=== PATIENT | female | born 1990 | race Two or more races ===

== ENCOUNTER 2016-03-13 14:57 | Emergency (ER) | payer MEDICAID, OTHER ==
[~2016-03-13] VITALS: Wt 70.0 kg
[~2016-03-13 14:57] MED LIST: ACET325T33 PO; ACET500C5 PO; NITR-58 PO
--- NOTE | 2016-03-13 17:38 | ERD ---
ER Documentation Chief Complaint Date/Time DATE: 03/13/16 TIME: 17:37 Chief Complaint VAG BLEED SINCE YESTERDAY. 6 WKS PREG. NO DYSURIA. MILD VAG BLEEDING HPI 25-year-old female who is , history of one , one miscarriage and one ectopic comes in with vaginal bleeding that started since March 08 that was 5 days ago. She states that she is approximately 6 weeks with last menstrual period on January 31, 2016 and comes in with history of light bleeding that became heavy for about 5 minutes last night and has returned to light bleeding since this morning. She describes pelvic discomfort, no specific pelvic pain. No fevers, chills or dizziness. Her OB is Dr. Dominguez. Patient reports that she did have an ultrasound done 5 days ago that showed a small sac. ROS All systems reviewed and are negative except as per history of present illness. Medications Home Meds Active Scripts Nitrofurantoin Monohyd Macrocr* (Macrobid*) 100 Mg Capsr, 100 MG PO BID for 7 Days, CAP Prov:MAXI CARTER PA-C 02/02/15 Acetaminophen* (Tylenol*) 325 Mg Tablet, 2 TAB PO Q8 Y for PAIN AND OR ELEVATED TEMP, #20 TAB Prov:MAXI CARTER PA-C 02/02/15 Acetaminophen* (Tylophen*) 500 Mg Capsule, 1 CAP PO Q6H Y for PAIN AND OR ELEVATED TEMP, #20 CAP Prov:KAYKAY VICTOR NP 01/20/15 Allergies Allergies: Coded Allergies: No Known Allergy (Unverified , 01/20/15) PMhx/Soc History of Surgery: Yes (APPY ) Anesthesia Reaction: No Hx Neurological Disorder: No Hx Respiratory Disorders: No Hx Cardiac Disorders: No Hx Psychiatric Problems: No Hx Miscellaneous Medical Probl: No Hx Alcohol Use: No Hx Substance Use: No Hx Tobacco Use: No Physical Exam Vitals Vital Signs Date Time Temp Pulse Resp B/P Pulse Ox O2 Delivery O2 Flow Rate FiO2 03/13/16 15:03 98.7 85 20 140/75 98 Physical Exam General: Well-developed, well-nourished. The patient appears in no acute distress. HEENT: Head is normocephalic, atraumatic. No scleral icterus. Neck: Supple. Nontender. Lungs: Clear to auscultation. Normal air movement. Heart: Regular rate and rhythm. S1 and S2 are normal. No murmurs, gallops, or rubs. Abdomen: Soft, nontender, nondistended. Bowel sounds are normoactive. Extremities: No clubbing or cyanosis. Normal pulses. Moving extremities x 4. No weakness. Neurologic: Alert and oriented 3. No focal deficits. Skin: Normal turgor. No rash or lesions. Result Diagram: 03/13/16 1750 Results 24 hrs PROCEDURE: OBSTETRICAL ULTRASOUND WITH ENDOVAGINAL IMAGES CLINICAL INDICATION: Vaginal Bleed () TECHNIQUE: Multiple sonographic images of the pelvis were obtained utilizing a transabdominal and endovaginal technique. The images were reviewed on a PACS workstation. COMPARISON: None. LMP: 01/31/2016 Gestational age by LMP: 6 weeks, 0 days FINDINGS: A possible intrauterine gestational sac is identified with mean sac diameter of 1.44 cm which would be consistent with a gestational age of 6 weeks, 0 days and an estimated date of delivery of 11/06/2016. No yolk sac or pole is identified within it. There is a 3.1 x 0.8 x 1.2 cm hypoechoic and hypovascular crescentic lesion adjacent to the gestational sac consistent with a subchorionic hemorrhage. The right ovary is not visualized. The left ovary measures 4.4 x 2.6 x 3.0 cm. There is normal vascular flow in the left ovary No significant ovarian lesions are seen. No significant pelvic free fluid is identified. IMPRESSION: A possible intrauterine gestational sac is identified which would be consistent with a gestational age of 6 weeks, 0 days. No yolk sac or pole is identified within it. Findings may be due to an early intrauterine although an ectopic cannot be entirely excluded. Short-term follow- up ultrasound and serial Beta HCG measurements are recommended for further evaluation. 3.1 cm subchorionic hemorrhage. The right ovary is not visualized. The left ovary and bilateral adnexa are unremarkable. RPTAT: EE Physician Julissa Date Time Electronically viewed and signed by Physician Julissa on 03/13/2016 18:28 RA/ Laboratory Tests Test 03/13/16 17:45 03/13/16 17:50 Urine Bacteria FEW Urine Bilirubin NEGATIVE Urine Clarity SLIGHTLY CLOUDY Urine Color YELLOW Urine Glucose NEGATIVE% Urine Hemoglobin 3+ Urine Ketones NEGATIVE Urine Leukocyte Esterase NEGATIVE Urine Microscopic RBC 25-50/HPF Urine Microscopic WBC 0-2/HPF Urine Nitrite NEGATIVE Urine Specific [place] 1.020 Urine Squamous Epithelial Cells MODERATE Urine Total Protein 1+ Urine Urobilinogen 0.2 E.U./dL Urine pH 5.5 Basophils # 0.010^3/ul Basophils % 0.2% Beta HCG, Quantitative 34470.0mIU/ml Eosinophils # 0.010^3/ul Eosinophils % 0.3% Hematocrit 37.7% Hemoglobin 12.9g/dl Lymphocytes # 2.610^3/ul Lymphocytes % 17.0% Mean Corpuscular Hemoglobin 30.1pg Mean Corpuscular Hemoglobin Concent 34.2g/dl Mean Corpuscular Volume 88.2fl Mean Platelet Volume 7.8fl Monocytes # 0.910^3/ul Monocytes % 5.9% Neutrophils # 11.910^3/ul Neutrophils % 76.6% Nucleated Red Blood Cells # 0.010^3/ul Nucleated Red Blood Cells % 0.0/100WBC Platelet Count 13915^3/UL Red Blood Count 4.2710^6/ul Red Cell Distribution Width 12.6% White Blood Count 15.610^3/ul Procedures/MDM Patient was seen and evaluated, she was offered pain medication including Tylenol and she currently declined. MDM: 25-year-old female approximately 6 weeks based on the LMP comes in with vaginal bleeding, differential diagnosis includes threatened versus early versus ectopic . Given the ultrasound findings that show a possible gestational intrauterine sac and hCG that is approximately 25,000 and I consulted the on-call laborist, Dr Kwon, I reviewed the hCG as well as her history of ectopic and ultrasound findings. She states that this patient may recheck in less than 48 hours for a beta quantitative. She is also stated that she needs to follow-up with her OB who is Dr. Dominguez. Clinically, she does not have pain, this patient states that it does not feel like the last time she had an ectopic . Given that she does not have pain, she is hemodynamically stable this patient is appropriate to be discharged at this time. I have given her strict ER return precautions, she is to return for any worsening symptoms including pain or bleeding. Otherwise she is to follow-up in less than 48 hours to get her hCG checked. If she cannot get her blood checked in less than 48 hours or see her OB that she may follow- up in the ER here. Departure Diagnosis: Primary Impression: Vaginal bleeding in patient at less than 20 weeks gestation Condition: ALIDA Wray PA-C Mar 13, 2016 17:38
[2016-03-13 18:01] LABS: BASOPHILS % 0.2 % (0.0-2.0); EOSINOPHILS % 0.3 % (0.0-7.0); HEMATOCRIT 37.7 % (37.0-47.0); HEMOGLOBIN 12.9 g/dl (12.0-16.0); LYMPHOCYTES # 2.6 10^3/ul (0.8-2.9); MEAN CORPUSCULAR HEMOGLOBIN 30.1 pg (29.0-33.0); MEAN CORPUSCULAR HGB CONC 34.2 g/dl (32.0-37.0); MEAN CORPUSCULAR VOLUME 88.2 fl (82.0-101.0); MEAN PLATELET VOLUME 7.8 fl (7.4-10.4); MONOCYTE # 0.9 10^3/ul (0.3-0.9); MONOCYTES % 5.9 % (0.0-11.0); NEUTROPHIL # 11.9 10^3/ul (1.6-7.5); NEUTROPHILS % 76.6 % (39.0-77.0); PLATELET COUNT 422 10^3/UL (140-440); RED BLOOD COUNT 4.27 10^6/ul (4.20-5.40); RED CELL DISTRIBUTION WIDTH 12.6 % (11.5-14.5); UNCORRECTED WBC 15.6 10^3/ul (4.8-10.8); WHITE BLOOD COUNT 15.6 10^3/ul (4.8-10.8)
[2016-03-13 18:04] LABS: CONDITION 1
[2016-03-13 18:13] LABS: ADD UMIC YES; URINE BILIRUBIN (Dip) NEGATIVE (NEGATIVE); URINE BLOOD (Dip) 3+ (NEGATIVE); URINE GLUCOSE (Dip) NEGATIVE (NEGATIVE); URINE KETONES (Dip) NEGATIVE (NEGATIVE); URINE LEUKOCYTE ESTERASE (Dip) NEGATIVE (NEGATIVE); URINE NITRITE (Dip) NEGATIVE (NEGATIVE); URINE TOTAL PROTEIN (Dip) 1+ (NEGATIVE); URINE UROBILINOGEN (Dip) 0.2 E.U./dL (0.1-1.0)
--- NOTE | 2016-03-13 18:28 | RADRPT ---
PROCEDURE: OBSTETRICAL ULTRASOUND WITH ENDOVAGINAL IMAGES CLINICAL INDICATION: Vaginal Bleed () TECHNIQUE: Multiple sonographic images of the pelvis were obtained utilizing a transabdominal and endovaginal technique. The images were reviewed on a PACS workstation. COMPARISON: None. LMP: 01/31/2016 Gestational age by LMP: 6 weeks, 0 days FINDINGS: A possible intrauterine gestational sac is identified with mean sac diameter of 1.44 cm which would be consistent with a gestational age of 6 weeks, 0 days and an estimated date of delivery of 017. No yolk sac or pole is identified within it. There is a 3.1 x 0.8 x 1.2 cm hypoechoic and hypovascular crescentic lesion adjacent to the gestatio nal sac consistent with a subchorionic hemorrhage. The right ovary is not visualized. The left ovary measures 4.4 x 2.6 x 3.0 cm. There is normal vascu lar flow in the left ovary No significant ovarian lesions are seen. No significant pelvic free fluid is identified. IMPRESSION: A possible intrauterine gestational sac is identified which would be consistent with a gestational a ge of 6 weeks, 0 days. No yolk sac or pole is identified within it. Findings may be due to an early intrauterine although an ectopic cannot be entirely excluded. Short-t erm follow-up ultrasound and serial Beta HCG measurements are recommended for further evaluation. 3.1 cm subchorionic hemorrhage. The right ovary is not visualized. The left ovary and bilateral adnexa are unremarkable. RPTAT: EE Physician Julissa Date Time Electronically viewed and signed by Peter Eisenberg Physician on 03/13/2016 18:28 /
[2016-03-13 18:35] LABS: URINE COLOR YELLOW (YELLOW)
[2016-03-13 18:36] LABS: BACTERIA,URINE FEW; SQUAMOUS EPITHELIAL CELL,UR MODERATE; URINE RBCS 25-50 /HPF (0)
== END 2016-03-13 20:05 | disposition home or self-care (01) ==
LOC: FTE 14:57
DX: O20.9 Hemorrhage in early pregnancy, unspecified (principal); R10.2 Pelvic and perineal pain; Z3A.01 Less than 8 weeks gestation of pregnancy
CPT/HCPCS: 36415; 76801; 76817; 81001; 81003; 84702; 85025; 86900; 86901

== ENCOUNTER 2016-04-18 15:28 | Emergency (ER) | payer SELFPAY ==
[~2016-04-18] VITALS: Ht 170.2 cm; Wt 77.0 kg
[2016-04-18 15:35] VITALS: Ht 170.2 cm; Wt 77.0 kg
--- NOTE | 2016-04-18 18:03 | ERD ---
ER Documentation Chief Complaint Date/Time DATE: 04/18/16 TIME: 18:01 Chief Complaint 10wks preg vag bleed HPI 25-year-old female who is a approximately 11 weeks gestation. The patient was told that she had a failed intrauterine gestation. Today she passed clot and tissue and she was concerned because she had worsening pain and heavy bleeding. She soaked 5 pads within an hour. She denies any lightheadedness or dizziness. She states that the symptoms are improving currently. She was concerned about the volume of blood and requested an evaluation. ROS All systems reviewed and are negative except as per history of present illness. Medications Home Meds Active Scripts Acetaminophen* (Tylenol*) 325 Mg Tablet, 2 TAB PO Q8 Y for PAIN AND OR ELEVATED TEMP, #20 TAB Prov:MAXI CARTER PA-C 02/02/15 Acetaminophen* (Tylophen*) 500 Mg Capsule, 1 CAP PO Q6H Y for PAIN AND OR ELEVATED TEMP, #20 CAP Prov:KAYKAY VICTOR NP 01/20/15 Discontinued Scripts Neomycin/Polymyxin/Hydrocort* (Cortisporin* Otic) 10 Ml Susp, 4 DROP BOTH EARS QID for 7 Days, #1 EA Prov:TYSHAWN SARGENT 04/18/16 Albuterol Sulfate* (Proair HFA*) 8.5 Gm Hfa.aer.ad, 2 PUFF INH Q4H Y for WHEEZING AND SOB, #1 INHALER Prov:TYSHAWN SARGENT 04/18/16 Benzonatate* (Tessalon Perle*) 100 Mg Capsule, 100 MG PO Q8H Y for COUGH, #30 CAP Prov:TYSHAWN SARGENT 04/18/16 Amoxicillin* (Amoxicillin*) 500 Mg Cap, 500 MG PO BID for 10 Days, CAP Prov:TYSHAWN SARGENT 04/18/16 Nitrofurantoin Monohyd Macrocr* (Macrobid*) 100 Mg Capsr, 100 MG PO BID for 7 Days, CAP Prov:MAXI CARTER PA-C 02/02/15 Allergies Allergies: Coded Allergies: No Known Allergy (Unverified , 01/20/15) PMhx/Soc History of Surgery: Yes (APPY ) Anesthesia Reaction: No Hx Neurological Disorder: No Hx Respiratory Disorders: No Hx Cardiac Disorders: No Hx Psychiatric Problems: No Hx Miscellaneous Medical Probl: No Hx Alcohol Use: No Hx Substance Use: No Hx Tobacco Use: No Smoking Status: Unknown if ever smoked FmHx Family History: No diabetes Physical Exam Vitals Vital Signs Date Time Temp Pulse Resp B/P Pulse Ox O2 Delivery O2 Flow Rate FiO2 04/18/16 15:35 97.6 91 16 150/83 98 Physical Exam General: Well developed, well nourished, no acute distress Head: Normocephalic, atraumatic. Eyes: Pupils equally reactive, EOM intact ENT: Moist mucous membranes Neck: Supple, no lymphadenopathy Respiratory: Lungs clear bilaterally, no distress Cardiovascular: RRR, no murmurs, rubs, or gallops Abdominal: Soft, non-tender, non-distended, no peritoneal signs : Retail Pos Specialist exam, external exam shows some mild blood at the office but no graphic and flow or hemorrhage MSK: No edema, no unilateral swelling, 5/5 strength Neurologic: Alert and oriented, moving all extremities, normal speech, no focal weakness, no cerebellar signs Skin: No rash Psych: Normal mood Result Diagram: 04/18/16 1837 Results 24 hrs Laboratory Tests Test 04/18/16 18:37 Basophils # 0.110^3/ul Basophils % 0.5% Beta HCG, Quantitative 55797.0mIU/ml Eosinophils # 0.110^3/ul Eosinophils % 0.5% Hematocrit 35.5% Hemoglobin 12.5g/dl Lymphocytes # 2.610^3/ul Lymphocytes % 16.8% Mean Corpuscular Hemoglobin 30.9pg Mean Corpuscular Hemoglobin Concent 35.2g/dl Mean Corpuscular Volume 87.9fl Mean Platelet Volume 9.1fl Monocytes # 1.010^3/ul Monocytes % 6.3% Neutrophils # 11.610^3/ul Neutrophils % 75.6% Nucleated Red Blood Cells # 0.010^3/ul Nucleated Red Blood Cells % 0.0/100WBC Platelet Count 88852^3/UL Red Blood Count 4.0410^6/ul Red Cell Distribution Width 11.9% White Blood Count 15.410^3/ul Procedures/MDM EKG, MONITORS, & DIAGNOSTIC IMAGING: Pelvic ultrasound: RPTAT:HJJR IMPRESSION: 1. Previously demonstrated intrauterine gestational sac on the study of 2016 is no longer present, a fluid-like structure within the region of the cervical os and vagina raises concern for a spontaneous in progress. Correlation with serum and HCG level is recommended. 2. Heterogeneous 15 mm thick endometrial cavity with some internal blood flow on Doppler interrogation raises concern for a combination of blood clots and retained products of conception. Follow-up evaluation is recommended. 3. Small hemorrhagic cyst or follicle within the left ovary. 4. Nonspecific free fluid in the right adnexa. LAB INTERPRETATION: Serum hC.8K Rh status: A positive MEDICAL DECISION MAKING: The patient's symptoms are most consistent with completed miscarriage. She exhibits no signs or symptoms concerning for acute ectopic however this needs to be evaluated here in the emergency room and be ruled out. In addition I doubt other acute intra-abdominal process such as ovarian cyst, ovarian torsion, acute appendicitis, colitis, kidney stone, acute pancreatitis or acute cholecystitis. The patient still has some mild bleeding, need to rule out retained products of conception. I have limited internal exam given risk of endometriosis. The patient will require further evaluation, laboratory testing and diagnostic imaging to evaluate and rule out acute ectopic . Patient will also require prompt outpatient MEDICAL TECH follow-up. We discussed this at the bedside. We had an in-depth conversation regarding the diagnosis of miscarriage, the prevalence of this process, the expected management as well as return precautions. ER COURSE: The patient still has some bleeding. Ultrasound imaging shows evidence of possible products within the cervix. On a weight analyst exam I was able to perform a speculum exam and retrieved some products of conception however the products broke with force and still have retention within the cervix. At this point I feel an MEDICAL TECH exam and possible retrieval would be appropriate. I spoke to Dr. Mccallum is marketing content manager for the patient's primary MEDICAL TECH. She has been kind enough to come to the bedside and evaluate the patient. Dr. Mccallum was able to retrieve the contents. The patient's cervix is now closed. Bleeding is improved. The patient is safe for discharge with primary care follow-up. Repeat hCG in 2-3 days to assure for improvement. I kept the patient and/or family informed of laboratory and diagnostic imaging results throughout the emergency room course. DISPOSITION PLAN: We discussed follow up with the patient's primary care doctor within 24 to 48 hours as needed. We also discussed return to the emergency room for worsening symptoms or worsening condition. Close outpatient MEDICAL TECH follow-up for repeat hCG value in 2-3 days and ultrasound as needed. Departure Diagnosis: Primary Impression: Miscarriage Condition: Stable VETO DELEON MD Apr 18, 2016 18:03
[2016-04-18] MEDS ORDERED: AMO500 PO (18:22)
[2016-04-18] MEDS ORDERED: NPH10OT BOTH EARS (18:22)
[2016-04-18] MEDS ORDERED: ALBU8.5H3 INH (18:22)
[2016-04-18] MEDS ORDERED: BENZ100C70 PO (18:22)
[2016-04-18 18:47] LABS: ADD SCAN DIFF NO
[2016-04-18 18:51] LABS: BASOPHIL # 0.1 10^3/ul (0.0-0.1); BASOPHILS % 0.5 % (0.0-2.0); EOSINOPHILS # 0.1 10^3/ul (0.0-0.5); EOSINOPHILS % 0.5 % (0.0-7.0); HEMATOCRIT 35.5 % (37.0-47.0); HEMOGLOBIN 12.5 g/dl (12.0-16.0); LYMPHOCYTES # 2.6 10^3/ul (0.8-2.9); LYMPHOCYTES % 16.8 % (15.0-51.0); MEAN CORPUSCULAR HEMOGLOBIN 30.9 pg (29.0-33.0); MEAN CORPUSCULAR HGB CONC 35.2 g/dl (32.0-37.0); MEAN CORPUSCULAR VOLUME 87.9 fl (82.0-101.0); MEAN PLATELET VOLUME 9.1 fl (7.4-10.4); MONOCYTES % 6.3 % (0.0-11.0); NEUTROPHIL # 11.6 10^3/ul (1.6-7.5); NEUTROPHILS % 75.6 % (39.0-77.0); PLATELET COUNT 401 10^3/UL (140-415); RED BLOOD COUNT 4.04 10^6/ul (4.20-5.40); RED CELL DISTRIBUTION WIDTH 11.9 % (11.5-14.5); WHITE BLOOD COUNT 15.4 10^3/ul (4.8-10.8)
--- NOTE | 2016-04-18 19:13 | RADRPT ---
PROCEDURE: US Pelvis. CLINICAL INDICATION: Vaginal bleeding. . TECHNIQUE: Multiple sonographic images of the pelvis were obtained utilizing a transabdominal and endovaginal technique. The images were reviewed on a PACS workstation. COMPARISON: 03/13/2016 FINDINGS: Uterus: Normal in size, contour and echogenicity with no evidence for myometrial masses. Size is est imated at 9.2 x 8 x 5.4 cm. Cervix: Anechoic area within the region of the cervical os and vagina is suggestive of fluid and po ssibly reflective of a a spontaneous in progress. Endometrium: Previously seen intrauterine gestational sac is no longer present, the thickness measu res 15 mm and is heterogeneous in echotexture, some areas of internal blood flow on Doppler interrog ation are present raising concern for a combination of blood clots and retained products of concepti on. Right ovary / adnexa: Normal in size estimated at 2.7 x 2.3 x 1.2 cm. No evidence for masses, norm al blood flow on Doppler interrogation. Small amount of nonspecific free fluid is noted. Left ovary/adnexa: Normal in size estimated at 3.1 x 1.7 x 1.5 cm. No evidence for solid masses, no rmal blood flow on Doppler interrogation. Hemorrhagic or proteinaceous cyst within the ovary measure s 1.2 x 1.1 x 1.1 cm Cul-de-sac: No evidence of free fluid. RPTAT:HJJR IMPRESSION: 1. Previously demonstrated intrauterine gestational sac on the study of 03/13/2016 is no longer pre sent, a fluid-like structure within the region of the cervical os and vagina raises concern for a sp ontaneous in progress. Correlation with serum and HCG level is recommended. 2. Heterogeneous 15 mm thick endometrial cavity with some internal blood flow on Doppler interrogat ion raises concern for a combination of blood clots and retained products of conception. Follow-up evaluation is recommended. 3. Small hemorrhagic cyst or follicle within the left ovary. 4. Nonspecific free fluid in the right adnexa. Physician Judy Date Time Electronically viewed and signed by Physician Judy on 04/18/2016 19:13 JR/
[2016-04-18 22:53] VITALS: BP 108/78; PULSE 75; RESP 18; TEMP 98.3
== END 2016-04-18 22:54 | disposition home or self-care (01) ==
LOC: FTE 15:28
DX: O03.9 Complete or unspecified spontaneous abortion without complication (principal)
CPT/HCPCS: 36415; 76801; 76817; 84702; 85025; 88305